=== PATIENT | female | born 1995 | race Caucasian/White ===

== ENCOUNTER 2019-01-13 19:58 | Inpatient (IN) | payer OTHER ==
[2019-01-13] MEDS ORDERED: NS 0.9% 1000 ML** 1,000 ML IV ONE ×3 (20:02→22:53)
--- NOTE | 2019-01-13 20:26 | ED ---
Substance Abuse/Use - HPI Summary HPI Summary: Pt is a 23 y/o female brought in by EMS who presents to the ED s/p overdose. As per EMS, at 10:30 this morning she took 60 pills of 25 mg Seroquel, totaling 1500 mg. However, patient states she took the pills at 18:45. As per police, they found several bottles with pills on the scene: Pierre, Wellbutrin, and Abilify. They also found an empty Seroquel pill bottle from February 2018. Pts mother called 911 for her daughters apparent suicide attempt. EMS states the pt is mildly tachycardic and lethargic, but her vitals are otherwise normal. PMHx dipolar disorder, suicide attempt. As per medical records, she drinks alcohol occasionally but does not use drugs or smoke. Pt is a level 5 caveat due to her AMS. - History Of Current Complaint Stated Complaint: OD PER EMS Time Seen by Provider: 01/13/19 20:01 Hx Obtained From: Patient, EMS, Medical Records Hx From Patient Unobtainable Due To: Altered Mental Status Ingestion History: Type/Name Of Drug - 25 mg Seroquel, Amount Ingested - 60 pills - 1500 mg total, Approximate Time Of Ingestion - 10:30 OR 18:45 Overdose Characteristics: Oral Character: Lethargic Aggravating Factor(s): Nothing Alleviating Factor(s): Nothing Associated Signs And Symptoms: Intentional Ingestion Related Hx: Suicidal: Prior Attempt(s) - Allergies/Home Medications Allergies/Adverse Reactions: Allergies Allergy/AdvReac Type Severity Reaction Status Date / Time No Known Allergies Allergy Verified 07/19/16 17:10 Home Medications: Home Medications ARIPiprazole [Aripiprazole] 15 mg PO DAILY 01/13/19 [History Confirmed 01/13/19] Pierre Carbonate ER TAB* 1 tab PO BEDTIME 01/13/19 [History Confirmed 01/13/19] QUEtiapine TAB* [Seroquel 25 MG TAB*] 1 - 3 tab PO BEDTIME PRN 01/13/19 [ History Confirmed 01/13/19] buPROPion HCl [Bupropion Xl] 150 mg PO DAILY 01/13/19 [History Confirmed ] PMH/Surg Hx/FS Hx/Imm Hx Respiratory History: Reports: Hx Asthma Sensory History: Reports: Hx Contacts or Glasses Opthamlomology History: Reports: Hx Contacts or Glasses Psychiatric History: Reports: Hx Eating Disorder - Restricting food at age 14, Hx Bipolar Disorder, Hx Suicide Attempt - Two past overdoses Denies: Hx Inpatient Treatment, Hx of Violent Episodes Against Others, Hx Substance Abuse Infectious Disease History: Unable to Obtain/Confirm Infectious Disease History: Denies: Traveled Outside the [place] in Last 30 Days - unable to obtain - Family History Known Family History: Positive: Other - alcoholism - Social History Alcohol Use: Occasionally Hx Substance Use: No Substance Use Type: Reports: None Hx Tobacco Use: No Smoking Status (MU): Never Smoked Tobacco Review of Systems Positive: Other - poss suicide attempt All Other Systems Reviewed And Are Negative: No Physical Exam - Summary Physical Exam Summary: Appearance: well appearing, no pain distress Skin: warm, dry, reflects adequate perfusion Head/face: normal Eyes: EOMI, JOHN ENT: mucous membranes moist Neck: supple, non-tender Respiratory: CTA, breath sounds present Cardiovascular: tachycardic but regular rhythm, pulses symmetrical, no LE edema Abdomen: non-tender, soft Bowel Sounds: present Musculoskeletal: normal, strength/ROM intact Neuro: extremely lethargic/somnolent, globally diminished reflexes, able to be aroused briefly, mumbled speech Triage Information Reviewed: Yes Vital Signs On Initial Exam: Initial Vitals Temp Pulse Resp BP Pulse Ox 98.0 F 113 18 127/88 98 01/13/19 20:03 01/13/19 20:03 01/13/19 20:03 01/13/19 20:03 01/13/19 20:03 Vital Signs Reviewed: Yes Completion Of Physical Exam Limited Due To: Level 5 - AMS - Maura Coma Scale Best Eye Response: 3 - To Speech Best Motor Response: 5 - Purposeful Movement Best Verbal Response: 3 - Inappropriate Words Coma Scale Total: 11 Diagnostics - Vital Signs Vital Signs Temp Pulse Resp BP Pulse Ox 01/13/19 20:03 98.0 F 113 18 127/88 98 - Laboratory Result Diagrams: 01/13/19 20:32 01/13/19 20:32 Lab Statement: Any lab studies that have been ordered have been reviewed, and results considered in the medical decision making process. - EKG 20:13 Cardiac Rate: Tachycardia - 114 bpm EKG Rhythm: Sinus Tachycardia ST Segment: Non-Specific Summary of EKG Findings: RAD, QTc 410, QRS 93 Course/Dx - Course Course Of Treatment: Nurse's notes reviewed. Patient is unable to contribute a history due to somnolence from Seroquel overdose. Her lithium level came back low. Best history we can come up with is some time in the afternoon she ingested 60 of her 25 mg Seroquel tablets. She does have history of overdoses in the past with a diagnosis of bipolar disorder. Her boyfriend came to find her this way when he called to check on her. There is no attempt to reach out to anyone for help. QTC, QRS are within normal range. Patient will require ICU observation at least through the night. At present, she is protecting her airway and maintaining normal vital signs aside from tachycardia. Consultation with poison control was made and the [place] at minimum 6 hour observation -- she likely will require longer given the amount of the ingestion before she is sober /coherent. Discussed with the hospitalist will admit for observation to the ICU. - Diagnoses Differential Diagnosis/HQI/PQRI: Positive: Bipolar Disorder, Depression, Metabolic Disorder, Other - Suicide attempt Provider Diagnoses: Suicide attempt, Antipsychotic overdose - Physician Notifications Discussed Care Of Patient With: Poison Control Time Discussed With Above Provider: 20:20 Instructed by Provider To: Other - Minimum 6 hour observation. Give IV fluids, and benzodiazepines as needed. At 21:05 Dr. Lloyd accepts pt for admission. - Critical Care Time Critical Care Time: 30-74 min - Critical care time is exclusive of separately billable procedures Discharge - Sign-Out/Discharge Documenting (check all that apply): Patient Departure - Admit Patient Received Moderate/Deep Sedation with Procedure: No - Discharge Plan Condition: Guarded Disposition: ADMITTED TO [facility] - Billing Disposition and Condition Condition: GUARDED Disposition: Admitted to [facility] - Attestation Statements Document Initiated by Scribe: Yes Documenting Scribe: Yeimy Castellanos Provider For Whom Scribe is Documenting (Include Credential): Antonio Rojas MD Scribe Attestation: Yeimy Solis scrcarolyneed for Antonio Rojas MD on 01/13/19 at 2133. Scribe Documentation Reviewed: Yes Provider Attestation: The documentation as recorded by the Yeimy perez accurately reflects the service I personally performed and the decisions made by Antonio alexander MD Status of Scribe Document: Viewed
[2019-01-13 20:42] LABS: ABS Basophils 0 10^3/ul (0-0.2); ABS Eosinophils 0.1 10^3/ul (0-0.6); ABS Lymphocytes 1.3 10^3/ul (1.0-4.8); ABS Monocytes 0.3 10^3/ul (0-0.8); ABS Neutrophils 3.2 10^3/ul (1.5-7.7); ABS Nucleated RBC 0 10^3/ul; Eosinophil % 1.2 %; Hematocrit 38 % (33-41); Hemoglobin 13.3 g/dL (12.0-16.0); Lymphocyte % 26.4 %; Mean Corpuscular HGB Conc 35 g/dL (31-36); Mean Corpuscular Hemoglobin 31 pg (27-31); Mean Corpuscular Volume 89 fL (80-97); Mean Platelet Volume 7.6 fL (7.4-10.4); Nucleated Red Blood Cells % 0; Platelet Count 239 10^3/uL (150-450); Red Blood Count 4.32 10^6 /uL (3.70-4.87); Red Cell Distribution Width 13 % (10.5-15); White Blood Count 4.9 10^3/uL (3.5-10.8)
[2019-01-13 20:57] LABS: ALT 7 U/L (7-52); AST 14 U/L (13-39); Albumin 4.5 g/dL (3.2-5.2); Albumin/Globulin Ratio 2.1 (1-3); Alkaline Phosphatase 54 U/L (34-104); Anion Gap 8 mmol/L (2-11); Blood Urea Nitrogen 16 mg/dL (6-24); CO2 Carbon Dioxide 24 mmol/L (22-32); Calcium 9.3 mg/dL (8.6-10.3); Chloride 108 mmol/L (101-111); EGFR African American 103.6 (>60); EGFR Non-African American 85.6 (>60); Globulin 2.1 g/dL (2-4); Glucose 94 mg/dL (70-100); Magnesium 2.1 mg/dL (1.9-2.7); Potassium 3.6 mmol/L (3.5-5.0); Sodium 140 mmol/L (135-145); Total Protein 6.6 g/dL (6.4-8.9)
[2019-01-13 21:04] LABS: HCG Pregnancy 1.16 mIU/mL
[2019-01-13 21:16] LABS: Acetaminophen < 15 mcg/mL; Alcohol < 10 mg/dL (<10); Salicylate < 2.50 mg/dL (<30)
[2019-01-13 21:31] LABS: TSH (Thyroid Stimulating Horm) 2.31 mcIU/mL (0.34-5.60)
[2019-01-13 21:37] LABS: Urine Appearance Cloudy; Urine Bacteria Absent (Absent); Urine Bilirubin Negative (Negative); Urine Blood Negative (Negative); Urine Color Yellow; Urine Glucose Negative (Negative); Urine Ketones Negative (Negative); Urine Nitrite Negative (Negative); Urine Protein Negative (Negative); Urine Red Blood Cell Absent (Absent); Urine Squamous Epithelial Cell Present (Absent); Urine Urobilinogen Negative (Negative); Urine White Blood Cell Trace(0-5/hpf) (Absent)
[2019-01-13 22:15] LABS: Barbiturates Urine Screen None Detected (None Detect); Benzodiazepine Urine Screen None Detected (None Detect); Urine Cannabinoids Screen None Detected (None Detect)
[2019-01-13] MEDS ORDERED: LORazepam INJ* 2 MG/ML 1 ML VIAL IV PUSH ONE (22:53)
--- NOTE | 2019-01-14 01:21 | ADMNOTE ---
Subjective Date of Service: 01/14/19 Interval History: HISTORY AND PHYSICAL PCP: [facility] CC: overdose HPI: Patient is 23 year old [employer] festus with history of depression and suicide attempt who took 60 tabs of seroquel 25 mg this evening as intentional overdose. She was speaking with her boyfriend in [facility] and he became concerned. He spoke to patient's mother in [place] and they called [place] police and EMS. The patient was brought to the ER in a confused state. EMS found bottles of wellbutrin, lithium, and abilify with her, but they seemed to have the correct pill counts. Last admission to this hospital 06/2016 with overdose of Abilify. Mother and boyfriend arrived from [place] [facility]. 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; PSH none Review of Systems - Measurements Intake and Output: Intake and Output Last 24 Hours 01/11/19 01/12/19 01/13/19 01/14/19 06:59 06:59 06:59 06:59 Intake Total 3000 Balance 3000 Weight 68.039 kg Intake: IV Fluids 3000 - Review of Systems General Comments: unable to obtain ROS, patient non-verbal Objective Active Medications: Ambulatory Orders ARIPiprazole [Aripiprazole] 15 mg PO DAILY 01/13/19 [place] Carbonate ER TAB* 1 tab PO BEDTIME 01/13/19 QUEtiapine TAB* [Seroquel 25 MG TAB*] 1 - 3 tab PO BEDTIME PRN 01/13/19 buPROPion HCl [Bupropion Xl] 150 mg PO DAILY 01/13/19 Vital Signs - 8 hr 01/13/19 01/13/19 01/13/19 20:03 20:17 20:24 Temperature 36.7 C 36.7 C Pulse Rate 113 113 111 Respiratory 18 16 15 Rate Blood Pressure 127/88 127/88 118/81 (mmHg) O2 Sat by Pulse 98 96 Oximetry 01/14/19 00:07 Temperature Pulse Rate 110 Respiratory 20 Rate Blood Pressure 142/89 (mmHg) O2 Sat by Pulse 99 Oximetry Oxygen Devices in Use Now: None Appearance: sleeping, occasional spontaneous arousal Eyes: No Scleral Icterus Ears/Nose/Mouth/Throat: NL Teeth, Lips, Gums Neck: NL Appearance and Movements; NL JVP Respiratory: Symmetrical Chest Expansion and Respiratory Effort, Clear to Auscultation Cardiovascular: NL Sounds; No Murmurs; No JVD Abdominal: NL Sounds; No Tenderness; No Distention, No Hepatosplenomegaly Lymphatic: No Cervical Adenopathy Extremities: No Edema Skin: No Rash or Ulcers Neurological: - - slurred speech, unintelligible, some random clonic jerks when stimulated Lines/Tubes/Other Access: Clean, Dry and Intact Peripheral IV Nutrition: - - NPO Result Diagrams: 01/13/19 20:32 01/13/19 20:32 Additional Lab and Data: Laboratory Tests 01/13/19 01/13/19 01/13/19 20:32 20:32 21:15 Glucose 94 Lactic Acid 0.7 AST 14 ALT 7 TSH 2.31 Beta HCG, Quant 1.16 Salicylates < 2.50 Urine Opiates Screen None detected Acetaminophen < 15 Ur Barbiturates Screen None detected Ur Phencyclidine Scrn None detected Ur Amphetamines Screen None detected [place] 0.10 L Urine Cocaine Screen None detected U Cannabinoids Screen None detected Serum Alcohol < 10 EKG Data: sinus tachy, short [place], no ischemia Assess/Plan/Problems-Billing Assessment: 23 year old with intentional overdose of Seroquel. - Patient Problems (1) Suicide attempt Current Visit: Yes Status: Acute Priority: High Comment: -Patient will be admitted to telemetry, have continuous cardiac and O2sat monitoring -Poison control contacted, advised to watch for tachycardia -Will clear spontaneously with supportive care -Will need psychiatry consult when conversant. (2) DVT prophylaxis Current Visit: Yes Status: Acute Priority: Low Code(s): GZA5400 - SNOMED Code(s): 421273014 Comment: -low risk, TEDS Status and Disposition: inpatient
[2019-01-14] MEDS ORDERED: Metoprolol Tartrate IV* 1 MG/ML 5 ML VIAL IV PRN ×2 (03:08→08:56)
[2019-01-14] MEDS: NS 0.9% w/ 20 Meq KCL 1000 ML* 1,000 ML IV SCH ×3 (03:33→19:41)
--- NOTE | 2019-01-14 11:49 | PN ---
Subjective Date of Service: 01/14/19 Interval History: Pt is see with her mother and boyfriend. Mostly asleep, intermittently wakes up and tries to sit up. able to follow simple commands before falling asleep. When approached appears startled. 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; PSH none Objective Active Medications: Potassium Chloride/Sodium Chloride (Ns 0.9% W/ 20 Meq Kcl 1000 Ml*) 1,000 mls @ 125 mls/hr IV PER RATE MOON Last Admin: 01/14/19 11:24 Dose: 125 mls/hr Lorazepam (Ativan Inj*) 0.5 mg IV PUSH Q6H PRN PRN Reason: ANXIETY Metoprolol Tartrate (Lopressor Iv*) 5 mg IV Q6H PRN PRN Reason: TACHYCARDIA Vital Signs - 8 hr 01/14/19 01/14/19 01/14/19 07:30 07:42 08:00 Temperature 97.3 F Pulse Rate 102 109 Respiratory 20 16 Rate Blood Pressure 134/72 (mmHg) O2 Sat by Pulse 96 Oximetry Oxygen Devices in Use Now: None Appearance: 23 yo F, sleeping in bed in NAD, nonverbal, lethargic, able to follow limited commands before drifting off to sleep Eyes: No Scleral Icterus, PERRLA Ears/Nose/Mouth/Throat: NL Teeth, Lips, Gums, Mucous Membranes Moist Neck: NL Appearance and Movements; NL JVP, Trachea Midline Respiratory: Symmetrical Chest Expansion and Respiratory Effort, Clear to Auscultation Cardiovascular: NL Sounds; No Murmurs; No JVD, RRR Abdominal: NL Sounds; No Tenderness; No Distention Lymphatic: No Cervical Adenopathy Extremities: No Edema, No Clubbing, Cyanosis Skin: No Rash or Ulcers, No Nodules or Sclerosis Neurological: NL Muscle Strength and Tone Result Diagrams: 01/13/19 20:32 01/13/19 20:32 Additional Lab and Data: Laboratory Tests 01/13/19 01/13/19 01/13/19 20:32 20:32 21:15 Glucose 94 Lactic Acid 0.7 AST 14 ALT 7 TSH 2.31 Beta HCG, Quant 1.16 Salicylates < 2.50 Urine Opiates Screen None detected Acetaminophen < 15 Ur Barbiturates Screen None detected Ur Phencyclidine Scrn None detected Ur Amphetamines Screen None detected [place] 0.10 L Urine Cocaine Screen None detected U Cannabinoids Screen None detected Serum Alcohol < 10 EKG Data: sinus tachy, short [place], no ischemia Assess/Plan/Problems-Billing Assessment: 23 year old with intentional overdose of Seroquel. - Patient Problems (1) Suicide attempt Comment: -Cont supportive care on tlem, IVF -Poison control contacted, advised to watch for tachycardia -Will clear spontaneously with supportive care in approx 24H -Will need psychiatry consult when conversant. (2) DVT prophylaxis Comment: -low risk, SCD's Status and Disposition: inpatient
[2019-01-14] MEDS: LORazepam INJ* 2 MG/ML 1 ML VIAL IV PUSH PRN ×2 (17:38→23:53)
[2019-01-15] MEDS: NS 0.9% w/ 20 Meq KCL 1000 ML* 1,000 ML IV SCH (03:38)
[2019-01-15 05:49] LABS: ABS Basophils 0 10^3/ul (0-0.2); ABS Eosinophils 0.1 10^3/ul (0-0.6); ABS Lymphocytes 1.4 10^3/ul (1.0-4.8); ABS Monocytes 0.5 10^3/ul (0-0.8); ABS Neutrophils 4.4 10^3/ul (1.5-7.7); ABS Nucleated RBC 0 10^3/ul; Eosinophil % 2.3 %; Hematocrit 35 % (33-41); Hemoglobin 12.1 g/dL (12.0-16.0); Lymphocyte % 21.3 %; Mean Corpuscular HGB Conc 34 g/dL (31-36); Mean Corpuscular Hemoglobin 31 pg (27-31); Mean Corpuscular Volume 91 fL (80-97); Mean Platelet Volume 7.9 fL (7.4-10.4); Nucleated Red Blood Cells % 0; Platelet Count 208 10^3/uL (150-450); Red Blood Count 3.89 10^6 /uL (3.70-4.87); Red Cell Distribution Width 13 % (10.5-15); White Blood Count 6.4 10^3/uL (3.5-10.8)
[2019-01-15 06:16] LABS: Albumin 4.2 g/dL (3.2-5.2); Albumin/Globulin Ratio 2.5 (1-3); BUN/Creatinine Ratio 15.8 (8-20); Calcium 8.9 mg/dL (8.6-10.3); EGFR African American 116.2 (>60); EGFR Non-African American 96.1 (>60); Globulin 1.7 g/dL (2-4); Potassium 3.8 mmol/L (3.5-5.0); Total Bilirubin 1.2 mg/dL (0.2-1.0); Total Protein 5.9 g/dL (6.4-8.9)
[2019-01-15] MEDS ORDERED: Pneumococcal *Vac Polyvalent 0.5 ML VIAL IM ONE (09:00)
--- NOTE | 2019-01-15 11:31 | PN ---
Subjective Date of Service: 01/15/19 Interval History: Pt has pressured speech and is still disoriented.Could not recall the correct year. no c/o pain, denies SOB. Had U. retention at night and Schneider was placed. 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/ avoidant personality d/o; PSH none Objective Active Medications: Lorazepam (Ativan Inj*) 0.5 mg IV PUSH Q6H PRN PRN Reason: ANXIETY Last Admin: 01/14/19 23:53 Dose: 0.5 mg Metoprolol Tartrate (Lopressor Iv*) 5 mg IV Q6H PRN PRN Reason: TACHYCARDIA Vital Signs - 8 hr 01/15/19 01/15/19 01/15/19 03:30 07:01 08:00 Temperature 97.8 F Pulse Rate 86 Respiratory 16 18 18 Rate Blood Pressure 124/74 (mmHg) O2 Sat by Pulse 97 Oximetry 01/15/19 08:21 Temperature 98.3 F Pulse Rate 92 Respiratory 16 Rate Blood Pressure 118/74 (mmHg) O2 Sat by Pulse 100 Oximetry Oxygen Devices in Use Now: None Appearance: 23 yo F oriented to self only, rapid pressured speech, pleasant, conversational , able to follow commands Eyes: No Scleral Icterus, PERRLA Ears/Nose/Mouth/Throat: NL Teeth, Lips, Gums, Mucous Membranes Moist Neck: NL Appearance and Movements; NL JVP, Trachea Midline Respiratory: Symmetrical Chest Expansion and Respiratory Effort, Clear to Auscultation Cardiovascular: NL Sounds; No Murmurs; No JVD, RRR Abdominal: NL Sounds; No Tenderness; No Distention, No Hepatosplenomegaly Lymphatic: No Cervical Adenopathy Extremities: No Edema, No Clubbing, Cyanosis Skin: No Rash or Ulcers, No Nodules or Sclerosis Neurological: NL Muscle Strength and Tone Result Diagrams: 01/15/19 05:20 01/15/19 05:20 Additional Lab and Data: Laboratory Tests 01/13/19 01/13/19 01/13/19 20:32 20:32 21:15 Glucose 94 Lactic Acid 0.7 AST 14 ALT 7 TSH 2.31 Beta HCG, Quant 1.16 Salicylates < 2.50 Urine Opiates Screen None detected Acetaminophen < 15 Ur Barbiturates Screen None detected Ur Phencyclidine Scrn None detected Ur Amphetamines Screen None detected [place] 0.10 L Urine Cocaine Screen None detected U Cannabinoids Screen None detected Serum Alcohol < 10 Microbiology and Other Data: Microbiology 01/13/19 21:15 Urine Culture - Final Urine No Growth (<1,000 CFU/mL) EKG Data: sinus tachy, short [place], no ischemia Assess/Plan/Problems-Billing Assessment: 23 year old with intentional overdose of Seroquel. - Patient Problems (1) Suicide attempt Comment: -Cont supportive care on telem, IVF stopped -asked for psychiatry consult today -still confused but improving, pressured speech, suspect halina (2) DVT prophylaxis Comment: -low risk, SCD's (3) Urinary retention Comment: developed last night. will d/c schneider and monitor Status and Disposition: inpatient
--- NOTE | 2019-01-15 18:32 | CONS ---
PSYCHIATRIC CONSULTATION REPORT: DATE OF ADMISSION: 01/14/19 DATE OF CONSULTATION: 01/15/19 ATTENDING PHYSICIAN: Dr. Maribel Doan. CONSULTING PHYSICIAN: Dr. Richard Green. REASON FOR CONSULT: Seroquel overdose. SUBJECTIVE HISTORY: The patient is a 23-year-old single white female who is a festus in physics at [employer], who is currently hospitalized on the medical service following a significant overd ose on close to 200 tablets of 25 mg strength Seroquel. The patient is not entirely clear about her thought process leading up to this overdose, but feels fairly certain that it was at least parasuicid al in nature. She does discuss several psychosocial stressors that are currently relevant, the most significant of which is that her father has just been admitted to a substance abuse [facility] [place]. He is a chronic alcoholic, tends to be avoidance with a bad temper and the pa tient has had a problematic relationship with him throughout her life. She had reported to her binh pist at [employer], a marriage and family social worker named Leticia Hartmann, that she had been having some suicidal though ts, but without any significant plan. Another stressor is that she has mid terms coming up and tends to be a perfectionistic student. She had shared her stressors with her boyfriend who is present. H is name is Antoine; however, he is surprised that she overdosed and did not see this coming. During our interview, she seems to have slightly pressured speech. So, I tried to perform a complete review of her symptoms. The best that I can tell given her residual confusion is that she has been somewha t depressed recently with no evidence of sleep disturbance, but certainly some anhedonia and guilt ov er not being able to do more for her father as well as lack of energy and mild appetite disturbance. Interestingly, the patient has a history of anorexia during her teenage years, but feels if anything that she has been overeating recently. Another significant element of history is that her psychiatri st in [place] has recently been taking her off Abilify, feeling that she no longer needs it. Thi s coupled with the fact that her lithium level was negligible indicates that she is less medicated pe rhaps than what she needs to be given her standing diagnosis of bipolar. The patient is denying suic idal ideations at this time. She states that she had a bad experience on the behavioral science unit during her admission in June 2016 and will prefer to not need to have inpatient psychiatric car e at this time. I was able to get the phone number for the patient's mother, who is not currently pr esent and I will be reaching out with her for collateral information. PAST PSYCHIATRIC HISTORY: The patient has one prior mental health hospitalization here at [facility] in Jun under the service of Dr. Richy Irby. He diagnosed her with an adjustment disorder as well as borderline personality disorder. The patient's outpatient psychiatrist is Dr. Hallman in [place], [place]. She last saw him over November roughly one month ago. Traditionally, she has been treated with Abilify, lithium and Wellbutrin. She also takes low dose of Seroquel at night to help her sleep. The patient denies any formal abuse growing up, but does indicate that she was s omewhat neglected in her alcoholic family. She denies any history of violence or homicidality. SUBSTANCE ABUSE HISTORY: Not applicable. PAST MEDICAL HISTORY: Significant for asthma. CURRENT MEDICATIONS: 1. [place] Extended Release 450 mg p.o. daily. 2. She takes Wellbutrin XL 150 mg p.o. daily. 3. Abilify 15 mg p.o. daily, which she has been weaned off of. 4. Seroquel 25 mg 1 to 3 tablets as a p.r.n. for insomnia. ALLERGIES: She has no known drug allergies. FAMILY HISTORY: Significant for alcoholism in her father. SOCIAL HISTORY: The patient is an only child. Her parents are still , although and her mother has kicked her father out of the house due to his ongoing abuse of alcohol. He is kayla cornell admitted to a substance abuse rehabilitation facility in [place]. 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 She is currently involv ed in a relationship with her boyfriend of the past 2-1/2 years. They are sexually active; however, she denies sexually transmitted diseases. MENTAL STATUS EXAM: The patient is a young white female with glasses, somewhat disheveled, wearing a patient gown, lying down in bed. She is calm, cooperative. Speech seems a little rapid. Mood appea rs to be dysthymic with a full affect. Thought process is disorganized at times and she can be confus ed during our interview. Thought content is significant for her [facility]. She denies auditory or visual hallucinations. She denies suicidal or homicidal ideations. I nsight and judgment are limited given her decision to overdose, which was highly impulsive. Cognitiv luis, she is awake and alert with what would appear to be a high-average intellect, by virtue of her a cademic history. DIAGNOSES: [place] I: Bipolar disorder, unspecified. [place] II: Borderline personality disorder, by hist ory. ASSESSMENT: The patient is a 23-year-old single white female with a history of bipolar disorder as w ell as borderline personality disorder, who is college student at [employer], currently hospi talized on the medical service following an intentional overdose on close to 5000 mg of Seroquel in w hat appears to have been an impulsive parasuicidal gesture. I am not certain at this time whether desiree urbina is in acute risk of self-harm again, but it would appear from her boyfriend's account this was unex pected, although she had divulged to her outpatient therapist some suicidal ideations within the last couple of months. Given the fact that she has been taken off Abilify and has no detectable lithium in her system, it is likely that her bipolar disorder is undertreated. RECOMMENDATIONS TO PRIMARY TEAM: We will resume lithium therapy with extended release lithium 450 mg p.o. q.h.s. Psychiatry will reevaluate the patient tomorrow when she is slightly less confused and we will try to make a determination in terms of what further care is warranted at this time. For now , I would recommend keeping her on one-to-one observation status and we will see her again tomorrow, 01/16/19. Thank you for the consult. [id number]/[facility] #: [id number]
[2019-01-15] MEDS ORDERED: Lithium Carbonate ER* 450 MG TAB.ER PO SCH (21:00)
[2019-01-16 08:19] LABS: ABS Basophils 0 10^3/ul (0-0.2); ABS Eosinophils 0.2 10^3/ul (0-0.6); ABS Lymphocytes 1.4 10^3/ul (1.0-4.8); ABS Monocytes 0.4 10^3/ul (0-0.8); ABS Neutrophils 3.7 10^3/ul (1.5-7.7); ABS Nucleated RBC 0 10^3/ul; Eosinophil % 3.2 %; Hematocrit 39 % (33-41); Hemoglobin 13.5 g/dL (12.0-16.0); Lymphocyte % 24.6 %; Mean Corpuscular HGB Conc 35 g/dL (31-36); Mean Corpuscular Hemoglobin 31 pg (27-31); Mean Corpuscular Volume 89 fL (80-97); Mean Platelet Volume 7.9 fL (7.4-10.4); Nucleated Red Blood Cells % 0; Platelet Count 246 10^3/uL (150-450); Red Blood Count 4.38 10^6 /uL (3.70-4.87); Red Cell Distribution Width 12 % (10.5-15); White Blood Count 5.8 10^3/uL (3.5-10.8)
[2019-01-16 08:36] LABS: Albumin 4.4 g/dL (3.2-5.2); Albumin/Globulin Ratio 2.1 (1-3); BUN/Creatinine Ratio 21.8 (8-20); Calcium 9.2 mg/dL (8.6-10.3); EGFR African American 112.8 (>60); EGFR Non-African American 93.2 (>60); Globulin 2.1 g/dL (2-4); Potassium 3.4 mmol/L (3.5-5.0); Total Bilirubin 0.4 mg/dL (0.2-1.0); Total Protein 6.5 g/dL (6.4-8.9)
[2019-01-16] MEDS ORDERED: Potassium Chlor TAB* 10 MEQ TAB.ER PO ONE (09:04)
--- NOTE | 2019-01-16 13:37 | CONSULT ---
Identification - Patient Identification Reason for Psychiatric Consultation: Suicidal Ideation -: Patient is a 23 year old, F admitted on 01/14/19. - MHU Identification Employment Status: Student Hx Psychiatric Hospitalization: Yes History - Objective HPI: Frances is seen for psychiatric follow up along with her boyfriend, Kp, and her mother, Tatiana Dykes. Nicol's mentation has greatly improved since yesterday and she is calm, cooperative and with normal speech. She remains remorseful for her overdose, which was impulsive and brought on by significant academic and family of origin stress. Her family feels that she is safe and they would like to take her home to [place], where she sees outpatient psychiatrist, Dr. Hallman. She also has a therapist there. The patient presents as very much future oriented, saying "I'm sure [employer] is right for me. I'm going to take a medical leave and start thinking about a different place to go." She talks at length and quite authentically about the difficulties of growing up with an alcoholic father who would often become belligerent. She would attempt to smooth situations out for him to avoid having him make scenes in public and never felt like she could be herself. She steadfastly denies any further ideas of self-harm and is looking forward to initiating further care in her hometown. Exam Appearance: Well Developed/Nourished Hygiene: Normal Grooming: Well Kept Psychomotor Activities: Normal Exhibits Abnormal Movement: No Attitude and Relatedness: Cooperative Eye Contact: Good - Speech Quality: Unpressured Latencies: Normal Quantity: Appropriate Patient's Decription of Mood: "Good" Observed Affect: Good Affect Consistent with: Euthymia Patient's Thought Process: Coherent Thought Content: No Passive Wish, No Suicidal Planning, No Homicidal Ideation, No Paranoid Ideation Experiencing Hallucinations: No, Sensorium is Clear Type of Hallucinations: Visual: No, Auditory: No, Command: No Level of Consciousness: Alert Orientation: Yes Intact, Yes Orientated to Time, Yes Orientated to Place, Yes Orientated to Person Impulse Control: Intact Insight and Judgement: Good Impression - Impression Clinical Impression: 23 y.o. 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 Inpatient DSM-V Dx: F43.25 BSU: Problem List - Patient Problems (1) Adjustment disorder with mixed disturbance of emotions and conduct Current Visit: No Status: Acute Priority: Low Code(s): F43.25 - ADJUSTMENT DISORDER W MIXED DISTURB OF EMOTIONS AND CONDUCT SNOMED Code(s): 26436628 Plan - Treatment Plan Treatment Plan: Psychiatry recommends allowing the patient to return home to [place] with her boyfriend and mother. There she sees an outpatient psychiatrist and therapist. We further recommend Critical access hospital services, given the sever alcoholic family dynamics continuing to affect the patient. Patient and family are agreeable with this and the primary team has been appraised of these recommendations. Continue lithium ER 450mg PO qhs. Psychiatry is signing off but can be reconsulted in the event of any changes in the patient's presentation. Continued Medication Management: Continue Outpt Medication Medications: Current Medications Candor Carbonate (Candor Carbonate Er Tab*) 450 mg PO BEDTIME MOON Last Admin: 01/15/19 20:27 Dose: 450 mg Lorazepam (Ativan Inj*) 0.5 mg IV PUSH Q6H PRN PRN Reason: ANXIETY Last Admin: 01/14/19 23:53 Dose: 0.5 mg Metoprolol Tartrate (Lopressor Iv*) 5 mg IV Q6H PRN PRN Reason: TACHYCARDIA - Discharge Plan Discharge Plan: Outpatient Follow Up
[2019-01-16 13:43] VITALS: BP 110/67
--- NOTE | 2019-01-16 22:59 | DS ---
CC: Dr. Green * DISCHARGE SUMMARY: DATE OF ADMISSION: 01/14/19 DATE OF DISCHARGE TO HOME: 01/16/19 PRIMARY CARE PROVIDER: Physician in [place]. CONDITION ON DISCHARGE: Stable. DISCHARGE DIAGNOSES: Seroquel overdose in an attempt to commit suicide. SECONDARY DIAGNOSES: 1. History of parasuicidal attempts in the past. 2. History of borderline personality disorder and adjustment disorder. MEDICATIONS AT DISCHARGE: Include lithium extended release 450 mg daily. CONSULTATIONS DURING THE HOSPITAL STAY: Include Dr. Green from Psychiatry. LABORATORY DATA DURING THE HOSPITAL STAY: Included from 01/16/19, white blood cell count of 5.8, hemoglobin of 13.5, hematocrit of 39, and platelets of 246. Sodium of 141, potassium 3.4, chloride 106, carbon dioxide 24, BUN 17, creatinine 0.78. Liver function tests are unremarkable. [place] level on 01/14/19 was below at 0.1. Remaining urine drug screen was negative for cocaine, benzodiazepines, amphetamines, phencyclidine, barbiturates. Acetaminophen, salicylates, and serum alcohol were below detectable. HOSPITALIZATION COURSE: Frances Dykes is a 23-year-old [employer] student, who took 60 tablets of 25 mg of Seroquel each and attempted suicide. The patient was hospitalized on a fruit pitter unit. She was noted initially to be tachycardic and treated with p.r.n. metoprolol. She was also hallucinating and lethargic. She was hospitalized a couple of days and by the time of discharge, she was back to her baseline with her mental status. She still was tachycardic mildly with a heart rate of 101 by the time of discharge, but it was noted that during the nighttime her heart rate was actually in the 70s and 80s and suspected emotional component to the tachycardia. The patient was seen by Dr. Green from Psychiatry, who cleared the patient for discharge to home. The patient is to follow up with her psychiatrist in [place] and her primary care provider in [place]. The patient's all medications are going to be discontinued apart from lithium that was okayed by Dr. Green. PHYSICAL EXAMINATION: At time of discharge, blood pressure 110/67, heart rate 106 and regular, respiratory rate 16, oxygen saturation 99% on room air, temperature is 97.9. General: The patient is a very pleasant 23-year-old female, who is in no acute distress. Alert and oriented x3. HEENT: Head: Atraumatic, normocephalic. Eyes: Pupils are equal, reactive to light and accommodation. Oropharynx is clear. Mucosa moist. Neck: Supple. No JVD. No bruits bilaterally. Cardiovascular: Regular rate and rhythm. No murmur. Respiratory: Clear to auscultation bilaterally. Abdomen: Soft, nontender. Bowel sounds are present in all 4 quadrants. Extremities: There is no edema. Pulses are +2 bilaterally. There is no clubbing or cyanosis. On neuro evaluation, speech is clear. Cranial nerves II through XII grossly intact. Motor strength is 5/5 bilaterally. Please note that this is a short summary of the patient's hospitalization. Please refer to further medical records for details. TIME SPENT: Approximately 50 minutes was spent on the patient's discharge. [id number]/CPS #: [id number] MTDD
== END 2019-01-16 15:18 | disposition home or self-care (01) | DRG 812 ==
LOC: ED 19:58 → MEDTELE 01-14 00:47
PROVIDERS: ADMIT Internal Medicine; ATTEND Internal Medicine
PROC: 0T9B70Z Drainage of Bladder with Drainage Device, Via Natural or Artificial Opening (ICD-10-PCS; principal; 2019-01-15)
DX: T43.592A Poisoning by other antipsychotics and neuroleptics, intentional self-harm, initial encounter (principal); F60.3 Borderline personality disorder; R00.0 Tachycardia, unspecified; J45.909 Unspecified asthma, uncomplicated; F50.9 Eating disorder, unspecified; R40.2352 Coma scale, best motor response, localizes pain, at arrival to emergency department; R40.2132 Coma scale, eyes open, to sound, at arrival to emergency department; R40.2232 Coma scale, best verbal response, inappropriate words, at arrival to emergency department; F43.25 Adjustment disorder with mixed disturbance of emotions and conduct; F31.9 Bipolar disorder, unspecified; R33.9 Retention of urine, unspecified; Z23 Encounter for immunization; Z72.89 Other problems related to lifestyle; Z80.3 Family history of malignant neoplasm of breast; Y92.9 Unspecified place or not applicable; Z81.1 Family history of alcohol abuse and dependence; Z68.24 Body mass index [BMI] 24.0-24.9, adult
CPT/HCPCS: 36415; 80048; 80053; 80076; 80178; 80307; 80320; 80329; 81003; 81015; 83605; 83735; 84443; 84702; 85025; 87086; 90686; 90732; 93005; 99283; A9270-GY; G0480; J2060; J3490